=== PATIENT | female | born 1980 | race Caucasian/White ===

== ENCOUNTER 2017-11-09 03:22 | Emergency (ER) | payer BC, OTHER ==
[~2017-11-09] VITALS: Ht 167.6 cm; Wt 104.3 kg
[2017-11-09 03:35] LABS: URINE BILIRUBIN NEGATIVE (Negative); URINE BLOOD NEGATIVE (Negative); URINE CLARITY CLEAR; URINE COLOR YELLOW; URINE GLUCOSE-RANDOM* NEGATIVE (Negative); URINE KETONES NEGATIVE (Negative); URINE LEUKOCYTES-REFLEX NEGATIVE (Negative); URINE NITRITE-REFLEX NEGATIVE (Negative); URINE PROTEIN (DIPSTICK) NEGATIVE (Negative); URINE SPECIFIC GRAVITY >= 1.030 (1.005-1.035); URINE UROBILINOGEN 0.2 E.U./dl (0.2-1.0)
[2017-11-09 03:54] LABS: CREATININE 0.8 mg/dL (0.6-1.0); POTASSIUM 3.9 mmol/L (3.5-5.1)
[2017-11-09 03:59] LABS: ALBUMIN 3.8 g/dL (3.4-5.0); TOTAL BILIRUBIN 0.3 mg/dL (<0.1-1.0); TOTAL PROTEIN 7.4 g/dL (6.4-8.2)
[2017-11-09 04:04] LABS: ABSOLUTE NEUTROPHILS 3.5 thou/uL (1.4-8.2); BASOPHILS 0.4 % (0.0-2.0); EOSINOPHILS 1.8 % (0.0-3.0); HEMATOCRIT 37.9 % (37.0-47.0); HEMOGLOBIN 13.2 gm/dL (12.0-15.0); LYMPHOCYTES 39.6 % (24.0-44.0); MCH 32.9 pg (26.0-34.0); MCHC 34.9 g/dL (28.0-37.0); MCV 94.5 fL (80.0-100.0); MONOCYTES 9.9 % (1.0-8.0); PLATELET COUNT 174 thou/uL (150-400); POLYS 48.3 % (36.0-66.0); RBC 4.01 mil/uL (4.20-5.00); RDW 12.5 % (10.5-14.5); WBC 7.2 thou/uL (4.0-11.0)
[2017-11-09 07:09] VITALS: BP 109/49
== END 2017-11-09 07:11 | disposition short-term general hospital (02) ==
LOC: ER 03:22
PROVIDERS: Emergency Medicine
DX: N83.511 Torsion of right ovary and ovarian pedicle (principal); R11.2 Nausea with vomiting, unspecified; F17.210 Nicotine dependence, cigarettes, uncomplicated; Z98.890 Other specified postprocedural states; Z90.710 Acquired absence of both cervix and uterus

== ENCOUNTER 2018-02-01 17:33 | Emergency (ER) | payer BC, OTHER ==
[~2018-02-01] VITALS: Ht 167.6 cm; Wt 101.2 kg
[2018-02-01] MEDS ORDERED: ULTRAM 50MG TAB50 MG PO (18:43)
[2018-02-01] MEDS ORDERED: CYCLOBENZAPRINE5 MG PO (18:43)
[2018-02-01 19:08] VITALS: BP 104/51
== END 2018-02-01 19:09 | disposition home or self-care (01) ==
LOC: ER 17:33
DX: S13.4XXA Sprain of ligaments of cervical spine, initial encounter (principal); Z90.710 Acquired absence of both cervix and uterus; Z98.890 Other specified postprocedural states; Z88.5 Allergy status to narcotic agent; F17.210 Nicotine dependence, cigarettes, uncomplicated; V89.2XXA Person injured in unspecified motor-vehicle accident, traffic, initial encounter; Y93.89 Activity, other specified; Y92.89 Other specified places as the place of occurrence of the external cause; Y99.8 Other external cause status

== ENCOUNTER 2018-03-27 19:02 | Emergency (ER) | payer BC, OTHER ==
[~2018-03-27] VITALS: Ht 167.6 cm; Wt 104.3 kg
[~2018-03-27 19:02] MED LIST: CYCLOBENZAPRINE5 MG PO; ULTRAM 50MG TAB50 MG PO
[2018-03-27 19:24] LABS: URINE BILIRUBIN NEGATIVE (Negative); URINE BLOOD NEGATIVE (Negative); URINE CLARITY CLEAR; URINE COLOR YELLOW; URINE GLUCOSE-RANDOM* NEGATIVE (Negative); URINE KETONES NEGATIVE (Negative); URINE LEUKOCYTES-REFLEX NEGATIVE (Negative); URINE NITRITE-REFLEX NEGATIVE (Negative); URINE PROTEIN (DIPSTICK) NEGATIVE (Negative); URINE SPECIFIC GRAVITY 1.025 (1.005-1.035); URINE UROBILINOGEN 0.2 E.U./dl (0.2-1.0)
[2018-03-27 19:48] LABS: ABSOLUTE NEUTROPHILS 3.9 thou/uL (1.4-8.2); BASOPHILS 0.5 % (0.0-2.0); EOSINOPHILS 3.6 % (0.0-3.0); HEMATOCRIT 36.8 % (37.0-47.0); HEMOGLOBIN 12.9 gm/dL (12.0-15.0); LYMPHOCYTES 34.1 % (24.0-44.0); MCH 33.4 pg (26.0-34.0); MCHC 35.1 g/dL (28.0-37.0); PLATELET COUNT 194 thou/uL (150-400); POLYS 54.8 % (36.0-66.0); RBC 3.88 mil/uL (4.20-5.00); RDW 12.9 % (10.5-14.5)
[2018-03-27 19:57] LABS: CALCIUM 8.9 mg/dL (8.5-10.1); CREATININE 0.8 mg/dL (0.6-1.0); POTASSIUM 3.9 mmol/L (3.5-5.1)
[2018-03-27 20:02] LABS: ALBUMIN 3.5 g/dL (3.4-5.0); TOTAL BILIRUBIN 0.1 mg/dL (<0.1-1.0); TOTAL PROTEIN 7.1 g/dL (6.4-8.2)
[2018-03-27] MEDS ORDERED: ULTRAM 50MG TAB50 MG PO (20:19)
[2018-03-27] MEDS ORDERED: NAPROSYN500 MG PO (20:19)
[2018-03-27 20:43] VITALS: BP 106/52
== END 2018-03-27 20:49 | disposition home or self-care (01) ==
LOC: ER 19:02
PROVIDERS: Emergency Medicine; Physician Assistant
DX: R10.33 Periumbilical pain (principal); Z90.710 Acquired absence of both cervix and uterus; Z98.890 Other specified postprocedural states; F17.210 Nicotine dependence, cigarettes, uncomplicated; Z88.5 Allergy status to narcotic agent

== ENCOUNTER 2018-05-23 13:52 | Emergency (ER) | payer OTHER ==
[~2018-05-23] VITALS: Ht 167.6 cm; Wt 99.8 kg
[~2018-05-23 13:52] MED LIST changes: +NAPROSYN500 MG PO
[2018-05-23 14:51] LABS: ABSOLUTE NEUTROPHILS 3.4 thou/uL (1.4-8.2); BASOPHILS 0.4 % (0.0-2.0); EOSINOPHILS 1.8 % (0.0-3.0); HEMOGLOBIN 13.6 gm/dL (12.0-15.0); LYMPHOCYTES 34.2 % (24.0-44.0); MCH 33.2 pg (26.0-34.0); MCHC 34.1 g/dL (28.0-37.0); MCV 97.5 fL (80.0-100.0); MONOCYTES 7.4 % (1.0-8.0); PLATELET COUNT 154 thou/uL (150-400); POLYS 56.2 % (36.0-66.0); RDW 12.8 % (10.5-14.5); WBC 6.1 thou/uL (4.0-11.0)
[2018-05-23 14:58] LABS: ANION GAP 9 mmol/L (7-16); BUN 12 mg/dL (7-18); CALCIUM 9.3 mg/dL (8.5-10.1); CHLORIDE 110 mmol/L (98-107); CO2 26 mmol/L (21-32); CREATININE 0.8 mg/dL (0.6-1.0); GLUCOSE 99 mg/dL (74-106); SODIUM 145 mmol/L (136-145)
[2018-05-23 15:07] LABS: TROPONIN-I <0.06 ng/mL (<0.06)
[2018-05-23] MEDS ORDERED: NAPROSYN500 MG PO (15:48)
[2018-05-23 15:51] VITALS: BP 126/57
--- NOTE | 2018-05-24 08:21 | EKG ---
[address] [address] ELECTROCARDIOGRAM REPORT Name: RICCARDO BLANC Room #: DEP Deejay#: [id number] ������������������ Admission: 05/23/18 ������������������ Attend Phys: Discharge: 05/23/18 ������������������ Date of : 84 Report #: [id number] ����������������������������������������������������������������� [id number] THIS REPORT FOR: //name// [facility] ED Test Date: 2018-05-23 Test Time: 14:08:41 Pat Name: RICCARDO BLANC Department: Room: Gender: F Settlement Processor: YULIYA : 1980 Requested By: Chicho Obregon Order Number: [id number] MD: Mikel Baldwin Measurements Intervals [place] Rate: 77 P: 44 WV: 141 QRS: 26 QRSD: 99 T: 35 QT: 379 QTc: 429 Interpretive Statements Sinus rhythm ST elev, probable normal early repol pattern No previous ECG available for comparison Electronically Signed On 05-24-2018 8:21:33 CDT by Mikel Baldwin [email or web address] ��������������������������������������������� <ELECTRONICALLY SIGNED> ���������������������������������������� By: Mikel Baldwin MD ��������������������������������������������� 05/24/18 0821 1408 1408 MD HERBER Sandra
== END 2018-05-23 16:00 | disposition home or self-care (01) ==
LOC: ER 13:52
PROVIDERS: Emergency Medicine
DX: R06.02 Shortness of breath (principal); R07.89 Other chest pain; F17.210 Nicotine dependence, cigarettes, uncomplicated; Z88.8 Allergy status to other drugs, medicaments and biological substances; Z98.890 Other specified postprocedural states; Z90.711 Acquired absence of uterus with remaining cervical stump